=== PATIENT | female | born 1950 | race Caucasian/White ===

== ENCOUNTER 2021-06-22 14:36 | Inpatient (IN) ==
[2021-06-22] MEDS ORDERED: cefTRIAXone 1,000 MG in SODIUM CHLORIDE 0.9% 100 ML IV STA (15:35)
[2021-06-22] MEDS ORDERED: ALBUTEROL/IPRATROPIUM 3 ML NEB RESP TX STA (15:35)
[2021-06-22 16:13] LABS: Arterial Base Excess iSTAT 0 MMOL/L (-2.5-2.5); Arterial O2 Saturation iSTAT 96 % (95-100); Arterial PCO2 iSTAT 36 MM HG (35-48); Arterial PO2 iSTAT 75 MM HG (80-95); Arterial Total CO2 iSTAT 25 MMO/L (23-27); Arterial pH iSTAT 7.438 (7.35-7.45)
[2021-06-22 17:01] LABS: Basophils # 0.1 10*3/uL (0.0-0.2); Basophils % 0.4 % (0.0-0.8); Hematocrit 26.8 VOL% (35.7-47.0); Hemoglobin 8.5 GM/DL (12.0-16.0); Immature Granulocytes % 6.2 %; Immature Granulocytes Absolute 1.49 #; Lymphocytes # 1.4 10*3/uL (1.4-4.0); Lymphocytes % 5.9 % (21.3-54.2); Mean Corpuscular HGB Conc 31.7 GM/DL (32-36); Mean Corpuscular Volume 84.8 FL (87-102); Monocytes # 1.5 10*3/uL (0.11-0.8); Monocytes % 6.3 % (1.7-12.7); Neutrophils % 81.2 % (38.7-73.9); Platelet Count 243 T/CUMM (130-400); Red Blood Count 3.16 MC/CUMM (3.8-5.5); Red Cell Distribution Width 16.3 % (9.3-17.3); White Blood Count 24.1 T/CUMM (4-12)
[2021-06-22 17:19] LABS: Hyaline Casts,Urine 3 /LPF (0-3); Mucus,Urine Occasional /LPF (Occasional); RBC,Urine 4 /HPF (0-4); Squamous Epithelial Cell,Urine Occasional /HPF (0-10)
[2021-06-22 17:29] LABS: Albumin 2.8 G/DL (3.4-5.0); Bilirubin,Total 0.5 MG/DL (0.20-1.00); Calcium 8.8 MG/DL (8.5-10.1); Osmolality,Calculated 274.7 MOS/KG (273-304); Potassium 3.6 MMOL/L (3.5-5.1); Total Protein 6.6 G/DL (6.4-8.2)
[2021-06-22 17:33] LABS: Bilirubin,Urine Negative (Negative); Glucose,Urine (UA) Negative (Negative); Ketones,Urine Negative (Negative); Nitrite,Urine Negative (Negative); Urine Appearance Clear (Clear); Urine Color Yellow (Yellow); Urine pH 5.5 (4.5-8.0)
[2021-06-22 17:34] LABS: Blood, Urine Trace mg/dL (Negative); Protein,Urine 100 mg/dL (Negative)
[2021-06-22] MEDS ORDERED: AZITHROMYCIN INJ 500 MG in SODIUM CHLORIDE 0.9% 250 ML IV STA (18:14)
[2021-06-22 18:21] LABS: Band Neutrophils 2 % (0-10); Lymphocytes 5 % (20-55); Metamyelocytes 2 %; Microcytosis 1+; Polychromasia Slight; Total Cells Counted 100
[2021-06-22] MEDS ORDERED: GLUCAGON 1 MG VIAL IM PRN (18:59)
[2021-06-22] MEDS ORDERED: hydrALAZINE 20 MG/1 ML VIAL IV PRN (18:59)
[2021-06-22] MEDS ORDERED: ONDANSETRON 4 MG/2 ML VIAL IV PRN (18:59)
[2021-06-22] MEDS ORDERED: ACETAMINOPHEN 325 MG TABLET PO PRN (18:59)
[2021-06-22] MEDS ORDERED: guaiFENesin/DM ER 600-30 MG TABLET PO PRN (18:59)
[2021-06-22] MEDS ORDERED: NITROGLYCERIN SL 0.4 MG TABLET SL PRN (19:09)
[2021-06-22] MEDS ORDERED: DEXTROSE 10% 250 ML BAG IV PRN (19:28)
[2021-06-22] MEDS ORDERED: ALUM/MAG/SIMETH/LIDO VISC 1:1 30 ML BOTTLE PO STA (19:34)
[2021-06-22] MEDS: ALBUTEROL 2.5 MG/3 ML NEB RESP TX SCH (20:06)
[2021-06-22] MEDS ORDERED: ALBUTEROL 2.5 MG/3 ML NEB RESP TX PRN (20:45)
[2021-06-22] MEDS: carvediloL 6.25 MG TABLET PO SCH (22:37)
[2021-06-22] MEDS: ROSUVASTATIN 10 MG TABLET PO SCH (22:37)
[2021-06-22] MEDS: cefTRIAXone 1,000 MG in SODIUM CHLORIDE 0.9% 100 ML IV SCH (22:38)
[2021-06-22] MEDS: BACLOFEN 10 MG TABLET PO SCH (22:38)
[2021-06-22] MEDS: VALSARTAN 160 MG TABLET PO SCH (22:38)
[2021-06-22] MEDS: ALPRAZolam 0.5 MG TABLET PO SCH (22:38)
[2021-06-22] MEDS: ENOXAPARIN 40 MG/0.4 ML SYRINGE SUBCUT SCH (22:38)
[2021-06-23] MEDS: ALBUTEROL 2.5 MG/3 ML NEB RESP TX SCH ×4 (00:33→19:50)
[2021-06-23 04:28] LABS: Alanine Aminotransferase 15 U/L (13-56); Albumin 2.3 G/DL (3.4-5.0); Alkaline Phosphatase 92 U/L (45-117); Aspartate Amino Transferase 22 U/L (0-37); Bilirubin,Total < 0.39 MG/DL (0.20-1.00); Blood Urea Nitrogen 56 MG/DL (7-18); Calcium 9.1 MG/DL (8.5-10.1); Carbon Dioxide 25 MMOL/L (21-32); Chloride 99 MMOL/L (98-107); Cholesterol 64 MG/DL (50-200); Estimated Glom Filtration Rate 17 ML/MIN; Glucose 100 MG/DL (74-106); HDL Cholesterol 19 MG/DL (40-60); Osmolality,Calculated 281.4 MOS/KG (273-304); Potassium 3.4 MMOL/L (3.5-5.1); Risk Ratio 3.37; Sodium 133 MMOL/L (136-145); Total Protein 6.7 G/DL (6.4-8.2); Triglycerides 104 MG/DL (2-150); VLDL Cholesterol 20.8 MG/DL
[2021-06-23] MEDS: PANTOPRAZOLE 40 MG TABLET PO SCH (07:45)
[2021-06-23] MEDS: FUROSEMIDE 40 MG/4 ML VIAL IV SCH ×2 (08:07→16:49)
[2021-06-23] MEDS: ALPRAZolam 0.5 MG TABLET PO SCH ×2 (08:59→21:59)
[2021-06-23] MEDS: ASPIRIN EC 81 MG TABLET PO SCH (08:59)
[2021-06-23] MEDS: BACLOFEN 10 MG TABLET PO SCH ×2 (08:59→22:13)
[2021-06-23] MEDS: carvediloL 6.25 MG TABLET PO SCH ×2 (08:59→22:13)
[2021-06-23] MEDS: BUDESONIDE/FORMOTEROL 160-4.5 INHALER 6 GM INH SCH (09:33)
[2021-06-23] MEDS: buPROPion XL 150 MG TABLET PO SCH (09:42)
[2021-06-23] MEDS ORDERED: AZITHROMYCIN INJ 500 MG in SODIUM CHLORIDE 0.9% 250 ML IV SCH (20:00)
[2021-06-23] MEDS: VALSARTAN 160 MG TABLET PO SCH (21:54)
[2021-06-23] MEDS: ROSUVASTATIN 10 MG TABLET PO SCH (21:58)
[2021-06-23] MEDS: ENOXAPARIN 40 MG/0.4 ML SYRINGE SUBCUT SCH (22:00)
[2021-06-23] MEDS: cefTRIAXone 1,000 MG in SODIUM CHLORIDE 0.9% 100 ML IV SCH (22:12)
[2021-06-24] MEDS: ALBUTEROL 2.5 MG/3 ML NEB RESP TX SCH ×4 (00:47→19:10)
[2021-06-24 05:32] LABS: Basophils # 0.1 10*3/uL (0.0-0.2); Basophils % 0.2 % (0.0-0.8); Eosinophils # 0.1 10*3/uL (0.0-0.87); Eosinophils % 0.3 % (0.00-10.9); Hematocrit 25.4 VOL% (35.7-47.0); Immature Granulocytes % 1.2 %; Immature Granulocytes Absolute 0.29 #; Lymphocytes # 1.6 10*3/uL (1.4-4.0); Lymphocytes % 6.6 % (21.3-54.2); Mean Corpuscular HGB Conc 31.5 GM/DL (32-36); Mean Corpuscular Volume 83.6 FL (87-102); Mean Platelet Volume 10.6 FL (9.6-12.0); Monocytes # 1.2 10*3/uL (0.11-0.8); Neutrophils % 86.7 % (38.7-73.9); Platelet Count 258 T/CUMM (130-400); Red Blood Count 3.04 MC/CUMM (3.8-5.5); Red Cell Distribution Width 16.1 % (9.3-17.3); White Blood Count 24.2 T/CUMM (4-12)
[2021-06-24 05:47] LABS: Osmolality,Calculated 286.4 MOS/KG (273-304); Potassium 3.3 MMOL/L (3.5-5.1)
[2021-06-24] MEDS: PANTOPRAZOLE 40 MG TABLET PO SCH (05:55)
[2021-06-24 06:06] LABS: Lymphocytes 2 % (20-55); Platelet Estimate Adequate; Total Cells Counted 100
[2021-06-24] MEDS ORDERED: POTASSIUM CHLORIDE 20 MEQ TABLET PO ONE (08:26)
[2021-06-24] MEDS: ALPRAZolam 0.5 MG TABLET PO SCH ×2 (09:16→20:54)
[2021-06-24] MEDS: buPROPion XL 150 MG TABLET PO SCH (09:16)
[2021-06-24] MEDS: ASPIRIN EC 81 MG TABLET PO SCH (09:16)
[2021-06-24] MEDS: carvediloL 6.25 MG TABLET PO SCH ×2 (09:16→20:54)
[2021-06-24] MEDS: BACLOFEN 10 MG TABLET PO SCH ×2 (09:16→20:54)
[2021-06-24] MEDS: FUROSEMIDE 40 MG/4 ML VIAL IV SCH (09:18)
[2021-06-24] MEDS: PIPERACILLIN/TAZOBACTAM 3,375 MG in SODIUM CHLORIDE 0.9% 100 ML IV SCH ×2 (09:20→20:53)
[2021-06-24] MEDS: BUDESONIDE/FORMOTEROL 160-4.5 INHALER 6 GM INH SCH (09:22)
[2021-06-24] MEDS: ENOXAPARIN 40 MG/0.4 ML SYRINGE SUBCUT SCH (20:54)
[2021-06-24] MEDS: ROSUVASTATIN 10 MG TABLET PO SCH (20:54)
[2021-06-24] MEDS ORDERED: VALSARTAN 160 MG TABLET PO SCH (21:00)
[2021-06-25] MEDS: ALBUTEROL 2.5 MG/3 ML NEB RESP TX SCH ×4 (00:30→19:17)
[2021-06-25 05:53] LABS: Basophils # 0.1 10*3/uL (0.0-0.2); Basophils % 0.3 % (0.0-0.8); Eosinophils # 0.2 10*3/uL (0.0-0.87); Eosinophils % 1.2 % (0.00-10.9); Hematocrit 25.3 VOL% (35.7-47.0); Hemoglobin 7.7 GM/DL (12.0-16.0); Immature Granulocytes % 1.9 %; Immature Granulocytes Absolute 0.29 #; Lymphocytes # 1.7 10*3/uL (1.4-4.0); Lymphocytes % 11.2 % (21.3-54.2); Mean Corpuscular HGB Conc 30.4 GM/DL (32-36); Mean Corpuscular Volume 85.2 FL (87-102); Mean Platelet Volume 10.6 FL (9.6-12.0); Monocytes % 6.6 % (1.7-12.7); Neutrophils % 78.8 % (38.7-73.9); Platelet Count 264 T/CUMM (130-400); Red Blood Count 2.97 MC/CUMM (3.8-5.5); Red Cell Distribution Width 16.3 % (9.3-17.3); White Blood Count 15.4 T/CUMM (4-12)
[2021-06-25] MEDS: PANTOPRAZOLE 40 MG TABLET PO SCH (06:01)
[2021-06-25 06:11] LABS: Calcium 7.7 MG/DL (8.5-10.1); Osmolality,Calculated 290.1 MOS/KG (273-304); Potassium 3.5 MMOL/L (3.5-5.1)
[2021-06-25] MEDS: BACLOFEN 10 MG TABLET PO SCH ×2 (11:02→20:20)
[2021-06-25] MEDS: FUROSEMIDE 40 MG TABLET PO SCH (11:02)
[2021-06-25] MEDS: ASPIRIN EC 81 MG TABLET PO SCH (11:02)
[2021-06-25] MEDS: carvediloL 6.25 MG TABLET PO SCH ×2 (11:02→20:20)
[2021-06-25] MEDS: buPROPion XL 150 MG TABLET PO SCH (11:02)
[2021-06-25] MEDS: FERROUS SULFATE 325 MG TABLET PO SCH ×2 (11:02→20:20)
[2021-06-25] MEDS: BUDESONIDE/FORMOTEROL 160-4.5 INHALER 6 GM INH SCH (11:04)
[2021-06-25] MEDS: PIPERACILLIN/TAZOBACTAM 3,375 MG in SODIUM CHLORIDE 0.9% 100 ML IV SCH ×2 (11:07→20:20)
[2021-06-25] MEDS: NICOTINE 21 MG/24 HR PATCH TRANSDERM PRN (12:49)
[2021-06-25] MEDS: ROSUVASTATIN 10 MG TABLET PO SCH (20:20)
[2021-06-25] MEDS: ALPRAZolam 0.25 MG TABLET PO SCH (20:20)
[2021-06-25] MEDS: ENOXAPARIN 40 MG/0.4 ML SYRINGE SUBCUT SCH (20:20)
[2021-06-25] MEDS: MONTELUKAST 10 MG TABLET PO SCH (20:20)
[2021-06-26] MEDS: ALBUTEROL 2.5 MG/3 ML NEB RESP TX SCH ×4 (01:07→20:00)
[2021-06-26 05:21] LABS: Basophils # 0.1 10*3/uL (0.0-0.2); Basophils % 0.6 % (0.0-0.8); Eosinophils # 0.3 10*3/uL (0.0-0.87); Eosinophils % 2.2 % (0.00-10.9); Hemoglobin 7.3 GM/DL (12.0-16.0); Immature Granulocytes % 2.6 %; Immature Granulocytes Absolute 0.32 #; Lymphocytes # 1.9 10*3/uL (1.4-4.0); Lymphocytes % 14.9 % (21.3-54.2); Mean Corpuscular HGB Conc 30.4 GM/DL (32-36); Mean Platelet Volume 10.5 FL (9.6-12.0); Monocytes # 1.2 10*3/uL (0.11-0.8); Monocytes % 9.2 % (1.7-12.7); Neutrophils % 70.5 % (38.7-73.9); Platelet Count 275 T/CUMM (130-400); Red Blood Count 2.79 MC/CUMM (3.8-5.5); Red Cell Distribution Width 16.5 % (9.3-17.3); White Blood Count 12.5 T/CUMM (4-12)
[2021-06-26] MEDS: PANTOPRAZOLE 40 MG TABLET PO SCH (05:25)
[2021-06-26 05:39] LABS: Calcium 8.3 MG/DL (8.5-10.1); Osmolality,Calculated 294.4 MOS/KG (273-304); Potassium 3.2 MMOL/L (3.5-5.1)
[2021-06-26] MEDS ORDERED: POTASSIUM CHLORIDE 20 MEQ TABLET PO ONE ×2 (07:26→17:00)
[2021-06-26] MEDS ORDERED: SODIUM CHLORIDE 0.9% 1,000 ML IV PRN ×2 (07:26→16:03)
[2021-06-26] MEDS ORDERED: ALPRAZolam 0.25 MG TABLET PO SCH (09:00)
[2021-06-26] MEDS: FERROUS SULFATE 325 MG TABLET PO SCH ×2 (10:41→21:15)
[2021-06-26] MEDS: ASPIRIN EC 81 MG TABLET PO SCH (10:41)
[2021-06-26] MEDS: carvediloL 6.25 MG TABLET PO SCH ×2 (10:42→21:14)
[2021-06-26] MEDS: FUROSEMIDE 40 MG TABLET PO SCH (10:43)
[2021-06-26] MEDS: ALPRAZolam 0.25 MG TABLET PO SCH ×2 (10:43→21:15)
[2021-06-26] MEDS: PIPERACILLIN/TAZOBACTAM 3,375 MG in SODIUM CHLORIDE 0.9% 100 ML IV SCH (10:44)
[2021-06-26] MEDS: BACLOFEN 10 MG TABLET PO SCH ×2 (10:44→21:14)
[2021-06-26] MEDS: buPROPion XL 150 MG TABLET PO SCH (11:03)
[2021-06-26] MEDS: ROSUVASTATIN 10 MG TABLET PO SCH (21:13)
[2021-06-26] MEDS: MONTELUKAST 10 MG TABLET PO SCH (21:14)
[2021-06-27] MEDS: BUDESONIDE/FORMOTEROL 160-4.5 INHALER 6 GM INH SCH (02:29)
[2021-06-27] MEDS: ALBUTEROL 2.5 MG/3 ML NEB RESP TX SCH ×2 (02:32→07:33)
[2021-06-27 05:21] LABS: Basophils # 0.1 10*3/uL (0.0-0.2); Eosinophils # 0.4 10*3/uL (0.0-0.87); Eosinophils % 2.6 % (0.00-10.9); Hematocrit 31.3 VOL% (35.7-47.0); Immature Granulocytes % 4.9 %; Immature Granulocytes Absolute 0.66 #; Lymphocytes # 2.1 10*3/uL (1.4-4.0); Lymphocytes % 15.3 % (21.3-54.2); Mean Corpuscular HGB Conc 31.3 GM/DL (32-36); Mean Corpuscular Volume 85.5 FL (87-102); Monocytes # 1.3 10*3/uL (0.11-0.8); Monocytes % 9.5 % (1.7-12.7); Neutrophils % 66.7 % (38.7-73.9); Platelet Count 327 T/CUMM (130-400); Red Cell Distribution Width 15.9 % (9.3-17.3); White Blood Count 13.6 T/CUMM (4-12)
[2021-06-27 05:23] LABS: Hemoglobin 9.8 GM/DL (12.0-16.0); Red Blood Count 3.66 MC/CUMM (3.8-5.5)
[2021-06-27 05:28] LABS: Calcium 9.1 MG/DL (8.5-10.1); Osmolality,Calculated 287.7 MOS/KG (273-304); Potassium 4.1 MMOL/L (3.5-5.1)
[2021-06-27 05:48] LABS: Band Neutrophils 2 % (0-10); Eosinophils 4 % (0-10); Hypochromia Slight; Lymphocytes 14 % (20-55); Metamyelocytes 1 %; Myelocytes 1 %; Nucleated Red Blood Cells 1 (0-5); Platelet Estimate Normal; Total Cells Counted 100
[2021-06-27] MEDS: PIPERACILLIN/TAZOBACTAM 3,375 MG in SODIUM CHLORIDE 0.9% 100 ML IV SCH (05:54)
[2021-06-27] MEDS: PANTOPRAZOLE 40 MG TABLET PO SCH (05:54)
[2021-06-27] MEDS: FUROSEMIDE 40 MG TABLET PO SCH (08:29)
[2021-06-27] MEDS: BACLOFEN 10 MG TABLET PO SCH (08:29)
[2021-06-27] MEDS: buPROPion XL 150 MG TABLET PO SCH (08:29)
[2021-06-27] MEDS: NICOTINE 21 MG/24 HR PATCH TRANSDERM PRN (08:29)
[2021-06-27] MEDS: ALPRAZolam 0.25 MG TABLET PO SCH (08:30)
[2021-06-27] MEDS: carvediloL 6.25 MG TABLET PO SCH (08:30)
[2021-06-27] MEDS: FERROUS SULFATE 325 MG TABLET PO SCH (08:30)
[2021-06-27] MEDS: ASPIRIN EC 81 MG TABLET PO SCH (08:30)
[2021-06-27 12:17] VITALS: BP 135/69
== END 2021-06-27 13:53 | disposition home or self-care (01) | DRG 190 ==
LOC: EDBD → EDUNIT# → N.ED 14:36 → N.EDINP 18:59 → N.TELEN 06-23 12:41
PROVIDERS: ADMIT Internal Medicine; ATTEND Internal Medicine